=== PATIENT | male | born 1980 | race Caucasian/White ===

== ENCOUNTER 2017-04-24 16:43 | Inpatient (IN) | payer OTHER ==
[~2017-04-24] VITALS: Ht 177.8 cm; Wt 101.7 kg
[2017-04-24] VITALS (279 sets, daily range): BP systolic 112–134; BP diastolic 75–118; PULSE 75–88; TEMP 97.5; O2SAT 93–99
[2017-04-25] VITALS (491 sets, daily range): BP systolic 102–106; BP diastolic 66–70; PULSE 56–60; TEMP 97.8; O2SAT 92–99
[2017-04-25 05:27] LABS: BASO # 0.1 (0.0-0.2); BASO % 1.2 % (0.0-2.0); EOS # 0.3 (0.0-0.7); EOS % 3.9 % (0-4.0); GRAN # 3.2 (1.4-6.5); GRAN % 43.8 % (42.2-75.2); HEMOGLOBIN 15.3 g/dl (13.5-18.0); LYMPH # 3.2 (1.2-3.4); LYMPH % 43.9 % (20.0-51.0); MEAN CELL VOLUME 88 fl (80.0-100.0); MEAN CORPUSCULAR HEMOGLOBIN 31 pg (27.0-31.0); MEAN CORPUSCULAR HGB CONC 36 g/dl (33.0-37.0); MEAN PLATELET VOLUME 10.1 fl (7.4-10.4); MONO # 0.5 (0.1-0.6); MONO % 6.9 % (1.7-9.3); PLATELET COUNT 278 K/mm3 (130-400); REDCELL DISTRIBUTION WIDTH-CV 12.1 % (11.5-14.5); WHITE BLOOD COUNT 7.3 K/mm3 (4.8-10.8)
[2017-04-25 05:37] LABS: ANION GAP 10 mmol/L (7-16); BLOOD UREA NITROGEN 13 mg/dL (9-20); CALCIUM 9.1 mg/dL (8.4-10.2); CARBON DIOXIDE 25 mmol/L (22-30); CHLORIDE 106 mmol/L (98-107); CREATININE, serum 0.93 mg/dL (0.66-1.25); GLUCOSE 91 mg/dL (74-106); POTASSIUM 4.2 mmol/L (3.4-5.0); SODIUM 142 mmol/L (137-145)
[2017-04-25 05:49] LABS: TROPONIN-I < 0.012 ng/mL (0.000-0.034)
[2017-04-25] MEDS ORDERED: ASACOL HD800 MG (13:43)
[2017-04-25] MEDS ORDERED: ASPIRIN 81M81 MG/TA2 PO (13:43)
[2017-04-25] MEDS ORDERED: PROTONIX 40MG T40 MG PO (13:43)
[2017-04-25] MEDS ORDERED: TAMBOCOR 1100 MG/TAB PO (13:44)
== END 2017-04-25 14:38 | disposition home or self-care (01) | DRG 310 ==
LOC: MEDICAL 16:43 → ICU 17:10
PROVIDERS: Nurse Practitioner Family
DX: I48.0 Paroxysmal atrial fibrillation (principal)
CPT/HCPCS: OP; 99223-AI; 99239; J1650